=== PATIENT | male | born 1945 | race Caucasian/White ===

== ENCOUNTER 2018-05-04 13:43 | Inpatient (IN) ==
[2018-05-04] MEDS: DUONEB (A & A) INH PRN ×2 (16:26→21:23)
[2018-05-04] MEDS: NS 1,000 ML IV SCH (17:41)
[2018-05-04] MEDS: SOLU-MEDROL IV SCH (17:42)
[2018-05-04] MEDS: LEVAQUIN 750 MG/D5W 750 MG/150 ML IVPB IV SCH (17:44)
[2018-05-04] MEDS: PROTONIX IV SCH (17:44)
[2018-05-04 18:17] LABS: BLOOD TYPE ARTERIAL; HCO3-(ACT) 27.7 mmoll (20.0-26.0); PCO2(98.6) 39 mmHg (35-45); PO2(98.6) 60 mmHg (60-100); SAMPLE BLOOD; pH(98.6) 7.46 (7.35-7.45)
[2018-05-04 18:18] LABS: BE 3.7 mmoll (-3.0-3.0); METHB 1.3 % (0.0-1.5); MODALITY CANNULA; O2(CT) 16.9 mL/dL (15.0-23.0); O2HB 91.6 % (95.0-99.0); SAO2 94.9 % (95.0-100.0); THB 13.1 g/dL (11.5-17.4)
[2018-05-04 18:19] LABS: ALLEN TEST YES
[2018-05-04] MEDS ORDERED: ULTRACET 37.5MG/325MG PO PRN (18:59)
--- NOTE | 2018-05-04 21:07 | HISTORY AND PHYSICAL ---
CHIEF COMPLAINT: Shortness of breath, left-sided pain. HISTORY OF PRESENT ILLNESS: He is a 73-year-old white male with known history of COPD who came to our clinic with the above problems with the family members. He was in extreme respiratory distress. Chest x-ray revealed severe COPD changes and sinusitis on Water's view. He has been admitted to the hospital for acute COPD exacerbation. He had a last physical in my office January 2018. PAST MEDICAL HISTORY: Atypical chest pain. Stress test was negative in 2014. COPD, glaucoma, obstructive sleep apnea, bilateral inguinal hernia. PAST SURGICAL HISTORY: Cataract surgery, right sided detached retina, cyst removed from the testicle. MEDICATIONS: Combivent, dorzolamide, DuoNeb, latanoprost, Pulmicort. ALLERGIES: Not known. SOCIAL HISTORY: for 40 years. Four children. Lives in [place]. Stopped smoking 10 years ago. Using alcohol on a daily basis. No drug abuse. FAMILY HISTORY: Father of cancer, not known, at the age of 60. Mom of COPD. HEALTH MAINTENANCE: Flu vaccine November 2017, pneumococcal 2015, last prostate exam January 2018, colonoscopy August 2013. REVIEW OF SYSTEMS: HEENT: Some sinus headache, some vision problems. No sore throat. Neck: No goiter. No lymphadenopathy. No bruit. Cardiopulmonary: No chest pain, shortness of breath, cough, wheezing. Gastrointestinal: No nausea, no vomiting or abdominal pain. Genitourinary: No history of hesitancy, frequency or dysuria. Musculoskeletal: No swelling of legs. No claudication symptoms. No joint pain. Neurologic: No focal symptoms or weakness or seizures. PHYSICAL EXAMINATION: VITAL SIGNS: Temperature is 99.6, tachycardic, blood pressure is 124/69, 6 feet tall, 135 pounds, 3 L nasal cannula 90%. HEENT EXAM: Atraumatic, normocephalic. Pupils equal and react to light. Nose and throat congested. TMs are normal.Neck: Supple. No lymphadenopathy. Chest: Poor air entry. Cardiovascular: Distant heart sounds. Abdomen: Belly is soft, nontender. Rectal: Deferred. Extremities: No peripheral edema, cyanosis. Neurological: No obvious neurological deficits. LABORATORY DATA: ABG: pH is 7.46, pCO2 39, pO2 60 on 32%. His proBNP is 232. IMAGIN. CT thorax chest is pending. 2. Chest x-ray: Sever COPD. 3. Water's view: Sinusitis on the right frontal and bilateral maxillary sinusitis. ASSESSMENT: A 73-year-old white gentleman admitted to the hospital with acute chronic obstructive pulmonary disease exacerbation. PLAN: 1. Check the EKG and cardiac enzymes. 2. CT thorax of the chest. 3. In the meantime, bronchodilators, IV antibiotics with Levaquin. 4. Gentle hydration with IV fluids. 5. DVT and GI prophylaxis as per order sheet. 6. For pain, tramadol as needed. 7. Reconcile home medications. 8. Also we will initiate vaccination protocol prior to the discharge and follow up on the pending labs and discuss the plan of care with the patient. cc: Alex Dalton MD
[2018-05-04 22:39] LABS: CREATININE 0.9 mg/dL (0.7-1.2)
[2018-05-05] MEDS: SOLU-MEDROL IV SCH ×3 (01:10→16:01)
[2018-05-05 07:26] LABS: BASO# 0.01 X1000 (0.0-0.2); BASO% 0.2 % (0.0-0.8); HEMATOCRIT 40.2 % (42.0-52.0); HEMOGLOBIN 12.9 g/dL (14.0-18.0); IMM GRAN# 0.03 X1000 (0.0-0.04); IMM GRAN% 0.6 % (0.0-0.5); LYMPH# 0.51 X1000 (1.2-3.4); LYMPH% 9.7 % (20.5-51.1); MCH 28.9 PG (27-31); MCHC 32.1 g/dL (33-37); MCV 90.1 FL (81-99); MONO# 0.24 X1000 (0.11-0.59); MONO% 4.6 % (1.7-9.3); NEUT# 4.46 X1000 (1.4-6.5); NEUT% 84.9 % (42.2-75.2); PLT 250 X1000 (130-400); RBC 4.46 XMIL (4.7-6.1); WBC 5.25 X1000 (4.8-10.8)
--- NOTE | 2018-05-05 07:32 | Diag Imaging Result Doc PS360 ---
EXAM: CT THORAX W/CONTRAST INDICATION: pneumonia TECHNIQUE: This exam was performed using automated exposure control, adjustment of mA or kV according to patient size, and/or use of iterative reconstruction technique. COMPARISON: None. FINDINGS: There is advanced pulmonary emphysema. There is biapical pleural-parenchymal scarring. There are airspace opacities in the superior right upper lobe as well as at both lung bases suggesting likely pneumonia. At the periphery of the right lower lobe on image 89 of series 3, there is an 8.1 mm noncalcified nodule that abuts the pleura. It is nonspecific. Follow-up CT is recommended based on Fleischner Society criteria. There is no pleural fluid collection and no pneumothorax. There is no evidence of significant mediastinal or hilar lymphadenopathy. There are some coronary artery calcifications. There is no cardiomegaly. Review of the upper abdomen reveals mild thickening of the left adrenal gland suggestive of mild hyperplasia. The upper abdomen is essentially unremarkable, otherwise. IMPRESSION: 1.Severe pulmonary emphysema. 2.Consolidation in the superior right upper lobe and at both lung bases suggesting likely pneumonia. 3.8.1 mm noncalcified nodule in the right lower lobe that is nonspecific. Follow-up based on Fleischner Society criteria is recommended. Electronically signed by Jose Maya 05/05/2018 7:30 AM
[2018-05-05 08:00] LABS: AGAP 13; ALB/GLOB RATIO 1.2; ALBUMIN 3.3 g/dL (3.5-5.0); ALKALINE PHOSPHATASE 63 U/L (32-122); BUN 13 mg/dL (8-22); CALCIUM 8.9 mg/dL (8.8-10.2); CHLORIDE 101 mmol/L (98-107); CK PROFILE 67 U/L (24-204); COSMO 285; CREATININE 0.6 mg/dL (0.7-1.2); ESTIMATED GFR > 60; GLUCOSE 159 mg/dL (70-104); GOT 15 U/L (10-34); GPT 11 U/L (10-44); POTASSIUM 4.8 mmol/L (3.5-5.1); SODIUM 141 mmol/L (136-145); TCO2 27 mmol/L (25-35); TOTAL BILIRUBIN 0.21 mg/dL (0.20-1.00)
--- NOTE | 2018-05-05 08:01 | EKG Report ---
Test Performed on : 05/04/2018 6:49:40 PM Test Reason : chest pain Blood Pressure : / mmHG Vent. Rate : 099 BPM Atrial Rate : 099 BPM P-R Int : 140 ms QRS Dur : 096 ms QT Int : 344 ms P-R-T Axes : 076 074 078 degrees QTc Int : 441 ms Normal sinus rhythm. Right atrial enlargement Incomplete right bundle branch block Borderline ECG No previous ECGs available Unconfirmed Result
--- NOTE | 2018-05-05 08:03 | Diag Imaging Result Doc PS360 ---
EXAM: CHEST-2 VIEWS 05/05/2018 HISTORY: hypoxia TECHNIQUE: PA and lateral chest COMMENT: There is severe emphysematous change. There is apical pleural thickening particularly on the left. There are ill-defined bibasilar opacities bilaterally and also to some extent in the right upper lobe. The heart size and pulmonary vascularity are not enlarged. There are no previous plain radiographs. IMPRESSION: COPD. Probable superimposed bronchopneumonia. Electronically signed by John Kidd 05/05/2018 8:01 AM
[2018-05-05] MEDS: LOVENOX SUBQ SCH (09:18)
[2018-05-05] MEDS: NS 1,000 ML IV SCH (09:18)
[2018-05-05] MEDS: NON-FORMULARY MED (Fluticasone/Umeclidin/Vilanter [Trelegy Ellipta 100-62.5-25] 1 EA) Inhalation SCH (10:13)
[2018-05-05] MEDS: DUONEB (A & A) INH PRN ×3 (10:13→22:11)
[2018-05-05] MEDS: SODIUM CHLORIDE 0.9% INJ SCH ×2 (16:01→19:17)
[2018-05-05] MEDS: PROTONIX IV SCH (16:01)
[2018-05-05] MEDS: LEVAQUIN 750 MG/D5W 750 MG/150 ML IVPB IV SCH (16:01)
[2018-05-05] MEDS: PHENERGAN IV PRN (19:17)
--- NOTE | 2018-05-05 20:07 | ECHO REPORT ---
ORDER DATE: 05/04/2018 ECHOCARDIOGRAPHIC MEASUREMENTS: 1. Interventricular septum 1.0. 2. Left ventricular posterior wall 1.0. 3. Diastolic diameter 3.7. 4. Left atrium 3.1. 5. Aorta 3.6. SUMMARY: 1. Aortic valve leaflets are trileaflet, calcified. 2. Pulmonic valve was normal. 3. Tricuspid valve was normal. 4. Mitral valve was normal. 5. Normal left ventricular cavity size. Estimated ejection fraction of 65%. 6. There is mild mitral regurgitation. 7. Mild tricuspid regurgitation. Peak velocity across the tricuspid valve was 2.2 m/sec. 8. Pulmonary artery systolic pressure of 30 mmHg. 9. Peak velocity across the aortic valve was less than 2 m/sec. There is no aortic stenosis. There is aortic sclerosis, there is no aortic regurgitation. 10. There is no pericardial effusion or obvious intracardiac mass or thrombus seen. cc: MD Alex Lee MD
--- NOTE | 2018-05-05 21:17 | PROGRESS NOTE ---
DATE: 05/05/2018 SUBJECTIVE: The patient is a little better. On oxygen. Echo is being done. No chest pain. Decreased productive cough. PHYSICAL EXAMINATION: Vital Signs: Temp is 97, pulse 70, blood pressure 150/88, 94% on room air. HEENT: Atraumatic, normocephalic. Pupils equal, reactive to light. He is on oxygen 3 L. Lungs: Poor air entry. Distant heart sounds. Abdomen: Belly is soft, nontender. Neurologic: No neurological deficits. INVESTIGATIONS: CBC: White cell count 5.2, hematocrit 40, platelets 250,000. ABG: pH is 7.46, pCO2 39, PO2 60. Bicarb 27. SMA-7 is normal. Glucose 159. LFTs were normal. Cardiac enzymes were normal. ProBNP 232. CT of the chest: Severe pulmonary emphysema. Consolidation of right superior lobe. 8.1 mm noncalcified nodule in the right lower lobe, nonspecific. Continue to monitor. Echocardiography: Normal LV systolic function. EF 65%. Aortic sclerosis. No pericardial effusion. No pulmonary hypertension noted. ASSESSMENT AND PLAN: 1. A 73-year-old white male with COPD exacerbation. Plan is oxygen, bronchodilators, IV steroids, IV antibiotics and Trelegy was given. 2. Gentle hydration. 3. DVT/GI prophylaxis and tramadol for pain. 4. Continue present treatment. LEVEL OF DOCUMENTATION: 25 minutes. cc: Alex Dalton MD
[2018-05-06] MEDS: NS 1,000 ML IV SCH ×2 (00:20→14:11)
[2018-05-06] MEDS: SOLU-MEDROL IV SCH ×4 (00:20→20:36)
[2018-05-06] MEDS: PHENERGAN IV PRN (05:20)
[2018-05-06 07:17] LABS: BASO# 0.02 X1000 (0.0-0.2); BASO% 0.2 % (0.0-0.8); HEMATOCRIT 37.9 % (42.0-52.0); HEMOGLOBIN 12.2 g/dL (14.0-18.0); IMM GRAN% 1.2 % (0.0-0.5); LYMPH# 0.58 X1000 (1.2-3.4); LYMPH% 7.1 % (20.5-51.1); MCH 28.9 PG (27-31); MCHC 32.2 g/dL (33-37); MCV 89.8 FL (81-99); MONO# 0.77 X1000 (0.11-0.59); MONO% 9.4 % (1.7-9.3); MPV 10.2 FL (7.4-10.4); NEUT% 82.1 % (42.2-75.2); PLT 276 X1000 (130-400); RBC 4.22 XMIL (4.7-6.1); RDW 13.6 % (11.5-14.5); WBC 8.17 X1000 (4.8-10.8)
[2018-05-06 07:51] LABS: AGAP 10; BUN 17 mg/dL (8-22); CALCIUM 9.1 mg/dL (8.8-10.2); CHLORIDE 99 mmol/L (98-107); COSMO 279; CREATININE 0.6 mg/dL (0.7-1.2); ESTIMATED GFR > 60; GLUCOSE 162 mg/dL (70-104); SODIUM 137 mmol/L (136-145); TCO2 28 mmol/L (25-35)
[2018-05-06] MEDS ORDERED: PREVNAR 13 IM ONE (08:41)
--- NOTE | 2018-05-06 09:14 | PROGRESS NOTE ---
DATE: 05/06/2018 SUBJECTIVE: The patient is a lot better. He is anxious to go home. He still has wheezing. OBJECTIVE: Temperature is 97.6, pulse 79, blood pressure 136/81, saturation 92%. He is not in respiratory distress. HEENT: Within normal limits. Neck: Supple. No lymphadenopathy. Chest: Scattered wheezing. Heart sounds are regular. Belly is soft, nontender. Good bowel sounds. No obvious neurological deficits. DIAGNOSTIC DATA: CBC with white cell count 8.1, hemoglobin 37.9, platelets 276. SMA7 is normal. ASSESSMENT AND PLAN: 1. Acute chronic obstructive pulmonary disease exacerbation with right upper lobe pneumonia, on IV steroids, IV antibiotics, and oxygen. 2. Bronchodilators with Trelegy. 3. DVT and GI prophylaxis as per order sheet. 4. We will decrease IV steroids and check the O2 level on room air. 5. Continue present treatment. 6. As far as cardiac workup, so far the echocardiogram, EKG and enzymes were normal. 7. The patient also needs pneumococcal vaccine before discharge. Level of documentation is 25 minutes. cc: Alex Dalton MD
[2018-05-06] MEDS: NON-FORMULARY MED (Fluticasone/Umeclidin/Vilanter [Trelegy Ellipta 100-62.5-25] 1 EA) Inhalation SCH (09:49)
[2018-05-06] MEDS: LOVENOX SUBQ SCH (09:57)
[2018-05-06] MEDS: PROTONIX IV SCH (14:55)
[2018-05-06] MEDS: DUONEB (A & A) INH PRN ×2 (15:15→23:46)
[2018-05-06] MEDS: LEVAQUIN 750 MG/D5W 750 MG/150 ML IVPB IV SCH (16:43)
[2018-05-07] MEDS: DUONEB (A & A) INH PRN ×2 (04:15→09:39)
[2018-05-07 07:07] VITALS: BP 144/81
[2018-05-07] MEDS: SOLU-MEDROL IV SCH (08:25)
[2018-05-07] MEDS: LOVENOX SUBQ SCH (08:26)
[2018-05-07] MEDS: NON-FORMULARY MED (Fluticasone/Umeclidin/Vilanter [Trelegy Ellipta 100-62.5-25] 1 EA) Inhalation SCH (09:38)
[2018-05-07] MEDS ORDERED: LINZESS PO ONE (10:21)
--- NOTE | 2018-05-07 10:51 | PROGRESS NOTE ---
DATE: 05/07/2018 SUBJECTIVE: Vital signs: Temperature 98.3 degrees, heart rate 81, respiration 16, blood pressure 144/81, O2 saturation on room air 93%. Laboratory was okay yesterday with normal BMP and white blood count 8200. Chest x-ray and CT of her chest reveal pneumonia in the upper lungs. Exam today reveals minimal congestion and no rales. He is anxious to go home. Steroids are changed to prednisone and levaquin changed to p. o. repeat CXR will be done in about a month as an out patient. cc: MD Alex Delarosa MD MTDD
--- NOTE | 2018-05-07 14:50 | DISCHARGE SUMMARY ---
ADMISSION DATE: 05/04/2018 DISCHARGE DATE: 05/07/2018 FINAL DIAGNOSES: Chronic obstructive pulmonary disease exacerbation, severe pulmonary emphysema, right upper lobe and both lung base pneumonia. 8.1 mm noncalcified nodule in the right lower lung, nonspecific. DISCHARGE MEDICATION: Nebulizer treatments with albuterol q.i.d., Levaquin 750 mg (7) 1 daily, prednisone 20 mg b.i.d. (30). REASON FOR ADMISSION: This is the first recent [facility] admission for this 73-year-old white man, patient of Dr. Dalton, who presented to the clinic with increasing shortness of breath and left-sided pain. There was history of a negative stress test in 2014. There is history of obstructive sleep apnea, and bilateral inguinal hernias. He was admitted for further evaluation and treatment. INITIAL LABORATORY: Hemoglobin 12.9, hematocrit 40.2, white blood count 5300 with 85% neutrophils. Sodium 141, potassium 4.8, BUN 13, creatinine 0.6, glucose 159. ProBNP 232. Total protein 6.0, albumin 3.3. Troponin less than 0.01. Magnesium 1.9. HOSPITAL COURSE: He was treated with nebulizer albuterol and Atrovent, Solu-Medrol, and intravenous Levaquin. There was marked improvement over several days, and he is anxious to go home today. He uses home O2. He has been on 3 L nasal oxygen and O2 saturation this morning was 96%. There was a rare wheeze in the right upper lung to auscultation, but no rales. He is discharged home on the above medications to see Dr. Dalton in 1 week for followup. cc: MD Alex Delarosa MD
[2018-05-07] MEDS ORDERED: PREDNISONE PO SCH (21:00)
--- NOTE | 2018-05-10 10:25 | DISCHARGE SUMMARY ---
ADMISSION DATE: 05/04/2018 DISCHARGE DATE: 05/07/2018 DISCHARGING DIAGNOSIS: Acute chronic obstructive pulmonary disease exacerbation. SECONDARY DIAGNOSES: 1. Atypical chest pain. Stress test was negative in 2014. 2. Right upper lobe pneumonia. 3. Glaucoma. 4. Obstructive sleep apnea. 5. History of bilateral inguinal hernia. BRIEF HISTORY: Please see the H and P that was done on 05/04/2018. In brief, he is a 73-year-old white gentleman admitted to the hospital with cough, shortness of breath, and wheezing. He was in moderate respiratory distress. Chest x-ray showed severe emphysema. HOSPITAL COURSE: Patient was given oxygen, bronchodilators, IV antibiotics and IV steroids. He did improve, and Dr. Rayshawn Albarran discharged the patient in a stable condition. Rest of the hospital course was uneventful. LABORATORY: CBC: White cell count 8.1, hematocrit 37.9 and platelet count 276,000. ABG on 3 L pH is 7.46, pCO2 39, PO2 60. SMA 7, sodium 137, potassium 4, BUN 17, and creatinine 0.6. Glucose 162. Calcium 9.1 and magnesium 1.9. LFTs were normal. ProBNP 232. CT chest severe pulmonary emphysema consolidated superior right upper lobe. Echocardiography report normal LV cavity size and EF 65%. No aortic stenosis noted. DISCHARGE INSTRUCTIONS: Pneumococcal 13. PCV 13 vaccine 05/06/2018. Trilogy 1 puff daily. Albuterol Atrovent nebulizers. Levaquin 500 mg daily for 10 days. Medrol Dosepak. Follow up in my office In 1 week. cc: Alex Dalton MD MTDD
== END 2018-05-07 12:13 | disposition home or self-care (01) | DRG 190 ==
LOC: EDIPHOLD 13:43 → 3N 16:08
PROVIDERS: ADMIT Internal Medicine; ATTEND Internal Medicine
CPT/HCPCS: 71020; 71046; 71260; 80048; 80053; 82550; 82565; 82805; 83735; 83880; 84484; 84520; 85025; 90670; 93005; 93010; 93306; 94640; 94761; A9270; C9113; J1650; J1956; J2550; J2930; J7030; Q9967; S0164